=== PATIENT | female | born 1965 | race Caucasian/White ===

== ENCOUNTER 2020-10-21 11:00 | Emergency (ER) | payer OTHER ==
[~2020-10-21] VITALS: Ht 170.2 cm; Wt 69.1 kg
--- NOTE | 2020-10-21 11:25 | NUR ---
assumed care of pt. pt here with c/o intermittent near-syncopal episides over the last 2 months. pt reports that 2 days after getting her 2nd Moderna vaccine, she started having intermittent CP woth episodes of SOB and palpitations pt reports thta these episodes especially happen when she is being active (such as hiking or when she is at the gym) and that it has interferred with her activity. pt reports that over the last few days, she has had a few episodes of "tunnel vision". pt denies LOC with these episodes pt states that she had been evaluated by her primary MD and is awaiting to be evaulated by a customer data technician and be fitted with a Holter monitor pt is currently A&O x4. ambulatory and CARDOSO without difficulty. no weakness, no facial droop. spekaing full sentences without difficulty. SO at bedside
--- NOTE | 2020-10-21 11:35 | NUR ---
Dr. Zelaya at bedside for eval pt is on acrdiac monitor. pt states that she has been having occasional PVC's. no PVC's identified on monitor at this time
[2020-10-21 11:58] LABS: ALBUMIN 4.1 g/dL (3.4-5.0); ANION GAP 3 mmol/L (5-15); CALCIUM 9.2 mg/dL (8.5-10.1); CHLORIDE 105 mmol/L (98-107); CREATININE 0.83 mg/dL (0.55-1.02)
[2020-10-21 11:59] LABS: BASOPHILS % (AUTO) 1 % (0-1); EOSINOPHILS % (AUTO) 1 % (1-7); LYMPHOCYTES % (AUTO) 23 % (22-44); MEAN CORPUSCULAR HEMOGLOBIN 32.4 pg (27.0-34.8); MONOCYTES % (AUTO) 9 % (2-9); NEUTROPHILS % (AUTO) 67 % (42-75); PLATELET COUNT 197 x10^3/uL (130-400); RED BLOOD COUNT 4.65 x10^6/uL (3.82-5.3); RED CELL DISTRIBUTION WIDTH 12.5 % (9.6-15.2)
[2020-10-21] MEDS ORDERED: SODIUM CHLORIDE FLUSH 10ML SYR IVF ONE (12:00)
--- NOTE | 2020-10-21 12:00 | NUR ---
no changes. pt sitting up on gurney in no apparent distress
[2020-10-21 12:02] LABS: TROPONIN I < 0.015 ng/mL (0.000-0.045)
[2020-10-21 12:02] LABS: MD NO
[2020-10-21 12:30] VITALS: BP 150/67
--- NOTE | 2020-10-21 12:44 | NUR ---
pt to CT scan via [facility]
--- NOTE | 2020-10-21 13:21 | NUR ---
awaiting test results. report to Lalo BOTELLO
--- NOTE | 2020-10-21 13:23 | NUR ---
chart up for MD recheck
--- NOTE | 2020-10-21 14:01 | NUR ---
TASK RN: Patient/Caregiver given discharge instructions and they have confirmed that they understand the instructions. Patient ambulatory with steady gait.
[2020-10-21] MEDS ORDERED: OMNIPAQUE 350 MG/ML, 75ML BOTTLE ONE (15:19)
== END 2020-10-21 14:02 | disposition home or self-care (01) ==
LOC: ED 13:51
DX: R55 Syncope and collapse (principal); R07.89 Other chest pain; R51.9 Headache, unspecified; R06.02 Shortness of breath; R06.00 Dyspnea, unspecified
CPT/HCPCS: 36415; 71275; 80048; 82040; 84484; 85025; 93005; 99285; Q9967